=== PATIENT | female | born 1955 | race Caucasian/White ===

== ENCOUNTER 2017-08-14 06:34 | Day surgery (SDC) | payer BC ==
[~2017-08-14 06:34] MED LIST: Lactated Ringers 1,000 ML IV SCH
[2017-08-14] MEDS ORDERED: Propofol 200 MG/20 ML SDV ONE ×2 (07:59→08:09)
[2017-08-14] MEDS ORDERED: fentaNYL 100 MCG/2 ML SDV ONE (07:59)
[2017-08-14] MEDS ORDERED: Ondansetron 4 MG/2 ML SDV ONE (08:00)
[2017-08-14 09:05] VITALS: BP 107/62
--- NOTE | 2017-08-14 10:17 | OR ---
PREOPERATIVE DIAGNOSIS: Screening colonoscopy. POSTOPERATIVE DIAGNOSIS: Normal colonoscopic exam. PROCEDURE PROPOSED AND PROCEDURE DONE: Total flexible colonoscopy. INDICATION: This is a 62-year-old female who comes in for a 10-year screening colonoscopy. She denies any symptomatology and has a negative family history for colon cancer. TECHNIQUE: The patient was brought to the endoscopy suite and placed in a left lateral decubitus position. She was given MAC anesthesia with propofol per SCRAP DROP CRANE OPERATOR. She was in the left lateral decubitus position, and a flexible video colonoscope was then passed transanally and under visualization, advanced to the cecum without difficulty. Examination revealed normal ascending, transverse, descending, sigmoid, and rectal colons. There was no evidence of any polyps, colitis, diverticulosis, or any other worrisome findings. The scope was then withdrawn. The patient tolerated the procedure well. FINAL IMPRESSION: Normal colonoscopic exam. PLAN: The patient was reassured. I felt she could wait 10 years before she needs a repeat colonoscopy. SCM: 08/14/2017 08:27:19 MODL: 08/14/2017 09:29:25 /[id number]
== END 2017-08-14 09:40 | disposition home or self-care (01) ==
LOC: VM.SDS 06:34
PROVIDERS: ATTEND Surgery
DX: Z12.11 Encounter for screening for malignant neoplasm of colon (principal); Z88.0 Allergy status to penicillin
CPT/HCPCS: 45378; J2405; J2704; J7120; J3010

== ENCOUNTER 2018-03-15 10:27 | Observation (INO) | payer BC ==
[2018-03-15] MEDS ORDERED: Temazepam 15 MG Cap PO PRN (11:02)
[2018-03-15] MEDS ORDERED: Ketorolac 30 MG/ML SDV IVPUSH PRN ×2 (11:02→17:05)
[2018-03-15] MEDS ORDERED: Ibuprofen 200 MG Tab PO PRN (11:02)
[2018-03-15] MEDS ORDERED: HYDROmorphone 1 MG/ML Syringe IVPUSH PRN (11:02)
--- NOTE | 2018-03-15 11:15 | PCM.HP ---
"H&P History of Present Illness - General Date of Service: 03/15/18 Admit Problem/Dx: Admission Diagnosis/Problem Admission Diagnosis/Problem Dehydration Source of Information: Patient - History of Present Illness Initial Comments - Free Text/Narative: Assessment / Plan 1. Fever of unknown origin (FUO) - COMPLETE BLOOD COUNT WITH DIFFERENTIAL; Future - HIV SCREEN REFLEX TO CONFIRMATION; Future - LDH TOTAL; Future - C-REACTIVE PROTEIN (INFLAMMATION); Future - ESR; Future - CULTURE, BLOOD; Future - COMPREHENSIVE METABOLIC PANEL; Future - ANTI NUCLEAR ANTIBODY SCREEN WITH REFLEX; Future - RHEUMATOID FACTOR, QUANTITATIVE; Future - QUANTIFERON; Future - CK; Future - LYME DISEASE ANTIBODY REFLEX TO CONFIRMATION; Future - PROTEIN SERUM ELECTROPHORESIS, REFLEX TO IMMUNOFIX; Future - AMYLASE; Future - URINE DIP, REFLEX TO MICROSCOPIC, REFLEX TO CULTURE; Future - MONOTEST; Future - CMV IGG AND IGM EIA; Future qSOFA (Quick SOFA) Score for Sepsis from [facility] on 03/15/2018 RESULT SUMMARY: 0 points qSOFA Score Not High Risk If sepsis is still suspected, continue to monitor, evaluate, and initiate treatment as appropriate, including serial qSOFA assessments. INPUTS: Altered mental status > 0 = No Respiratory rate =22 > 0 = No Systolic BP =100 > 0 = No Plan:Fever without source 10 days. She is getting a bit weak and rundown otherwise she has a nontoxic exam. Her labs with normal CRP with repeat one pending and just mild elevation of ESR look like more of a viral process. Additionally she has some reactive lymphocytes. Her Monospot testis negative. We'll send for CMV. West Nile would be in differential her test was negative but this can take a while turn positive. Consider repeating this next week. I don't think influenza would be likely given no recent exposures and complete absence of respiratory symptoms. Describes zoster but this was 2mo ago, likely noncontributory. Only travel was to [place]. Test for Lyme but denies any bites and not common in [place]. I don't feel lumbar puncture is indicated this time given complete absence of head and neck symptoms. I do not feel CT chest and abdomen are indicated at this time given nontoxic picture as well. I have sent out other above FUO labs to [facility]. They would like admission for symptom control and IV fluids as she is feeling quite run down. We'll discuss with internal medicine Dr. Patel will be covering over the weekend. I otherwise do not see need for transfer or infectious disease consult at this time as long she remains nontoxic. Follow Up: No disposition on file. HPI / History / ROS HPI Comments:Recheck fever without a source now for about 10 days. Temps 101- 102. Not trending downward. Some relief with Tylenol and Advil. Feels weak all over. Denies headache or neck pain. Denies respiratory symptoms denies GI or symptoms. Normal CRP just mild elevation ESR. UA was normal. No known exposures. No real recent travel have been to [place]. She had a small zoster type rash to her left scapula but this was a full two months ago. Nonsmoker, , otherwise healthy. Fever Associated symptoms include nauseaand a rash (resolved). Pertinent negatives include no abdominal pain, congestion, coughing, diarrhea, headaches, sore throator vomiting. Extremity Weakness Associated symptoms include arthralgias, chills, fatigue, a fever, nausea, a rash (resolved)and weakness. Pertinent negatives include no abdominal pain, congestion, coughing, headaches, joint swelling, myalgias, neck pain, numbness, sore throator vomiting. Nausea Associated symptoms include arthralgias, chills, fatigue, a fever, nausea, a rash (resolved)and weakness. Pertinent negatives include no abdominal pain, congestion, coughing, headaches, joint swelling, myalgias, neck pain, numbness, sore throator vomiting. Medications MedicationsPriortoVisit Outpatient Medications Prior to Visit Medication Sig Dispense Refill omega-3 fatty acids (FISH OIL) 1000 mg capsule Take 1,000 mg by mouth 3 times a day magnesium 100 MG TABS Take 250 mg by mouth Saccharomyces boulardii (PROBIOTIC) 250 MG CAPS Take 250 mg by mouth Multiple Vitamin (MULTIVITAMIN) TABS Take 1 tablet by mouth 1 time per day. calcium carbonate-vitamin D (CALTRATE 600 + VIT D) 600mg-200 unit tablet Take 1 tablet by mouth 2 times a day with meals. ibuprofen (ADVIL;MOTRIN-IB) 200 mg tablet Take 200-600 mg by mouth Every 4 hours as needed. No facility-administered medications prior to visit. Allergies Allergies l Allergen l Reactions Penicillin Edema Facial and hand swelling Problem List Patient Active Problem List l Diagnosis Menopausal and postmenopausal disorder Viral warts Colon polyp Hyperlipidemia, unspecified High risk medication use Watts fracture Scalp cyst Abnormal pap Palpitations Anxiety Prominent aorta Hearing disorder of both ears Torticollis, spasmodic Knee pain, bilateral Myofascial pain syndrome IUD contraception Herpes zoster virus infection of face and ear nerves Pelvic pain in female Primary insomnia Normal cardiac stress test Panic disorder without agoraphobia Disorder of bone Medical/Surgical/Family/SocialHistory PastMedicalHistory Past Medical History: Diagnosis Date Anxiety 09/23/2013 prn, xanax, . Recurred Feb 2015, AIXA&was 4, and PHQ 6., trial xanax again. Colon polyp 03/06/2007 03/06/2007 hyperplastic polyps, next scope 10 yrs Disorder of bone 07/12/2015 Osteopenia in 2009, 2012 worsened, 07/15/15 worsened, next DEXA in 2 yrs. Fibroid uterus 10/06/[address], having pain. H/O colonoscopy 03/06/2007 see colon polyp Hearing disorder of both ears Herpes zoster virus infection of face and ear nerves 2010 right forehead. Hyperlipidemia, unspecified Iron deficiency anemia secondary to inadequate dietary iron intake 09/12/2013 Denied blood donation.in Dec , low iron stores in Aug 2013. IUD contraception [id number], replaced in 2002 don't know if removed? Watts fracture 12/25/2012 12/25/12 injury on left. Myofascial pain syndrome 04/06/2014 seen by Milan Wallace. OT. Normal cardiac stress test 05/03/20152014 nl stress echo, EF 75%. Pelvic pain in female 10/06/[address], having pain. Prominent aorta 10/02/2013 Neg US in 2006 PastSurgicalHistory Past Surgical History: Procedure Laterality Date OPEN REDUCTION Left 01/10/2013 Procedure: LEFT FOOT PERCUTANEOUS SCREW FIXATION ; LEFT FOOT PERCUTANEOUS SCREW FIXATION ; Surgeon: Kennedy Tanner DPM FamilyHistory Family History Problem Relation Age of Onset Stroke Mother 59 Chronic Obstructive Pulmonary Disease Father Alcohol Abuse Father Emphysema Sister Heart Paternal Grandfather Heart Brother Alcohol Abuse Brother Emphysema Brother Lung Cancer Brother Cancer (not otherwise listed) Maternal Grandmother bladder cancer No Known Problems Brother Breast Cancer Paternal Aunt Colorectal Cancer Neg Hx SocialHistory Social History Social History Marital status: Number of children: 3 Occupational History retired Social History Main Topics Smoking status: Never Smoker Smokeless tobacco: Never Used Alcohol use No Comment: 1-2 glasses wine twice a week Drug use: No Social History Narrative She is . She retired as middle school counselor in 2011. Does not smoke. Rarely consumes alcohol. She is [employer]regational. Exercise: Walks 2-3 miles on treadmill daily Diet: Well balanced; no milk; takes a calcium supplement Safety: Denies any physical, emotional, or sexual abuse; guns in home locked up ; 100% seatbelt; rare with sunscreen; does not ride bike or motorcycle ROS Review of Systems Constitutional: Positive for chills, fatigueand fever. HENT: Negative for congestionand sore throat. Respiratory: Negative for coughand shortness of breath. Gastrointestinal: Positive for nausea. Negative for abdominal pain, diarrhea and vomiting. Musculoskeletal: Positive for arthralgias. Negative for joint swelling, myalgias , neck painand neck stiffness. Skin: Positive for rash(resolved). Neurological: Positive for weakness. Negative for numbnessand headaches. Physical / Results BP 104/76 Pulse 85 Temp 101.5 F (38.6 C) (Temporal) Wt 69.8 kg (153 lb 12.8 oz) SpO2 97% BMI 27.46 kg/m2|| Physical Exam Constitutional: She is oriented to person, place, and time. She appears well- developedand well-nourished. No distress. HENT: Right Ear: External earnormal. Left Ear: External earnormal. Nose: Nose normal. Mouth/Throat: Oropharynx is clear and moist. Eyes: Pupils are equal, round, and reactive to light. Neck: Normal range of motion. Cardiovascular: Normal rate, regular rhythmand normal heart sounds. Pulmonary/Chest: Effort normaland breath sounds normal. Abdominal: Soft. There is no tenderness. Musculoskeletal: Normal range of motion. Neurological: She is alertand oriented to person, place, and time. Skin: Skin is warmand dry. She is not diaphoretic. Healed hyperpigmentation zoster type scar L scapula Psychiatric: She has a normal mood and affect. Generalized Pain Score (Numeric/FACES): 7 - Related Data Allergies/Adverse Reactions: Allergies Allergy/AdvReac Type Severity Reaction Status Date / Time Penicillins Allergy Swelling Verified 08/14/17 06:57 Home Medications: Home Meds Ca/D3/Mag#11/Zinc/Night Patrol Inspector/Kike/Bor [Caltrate 600+D Plus Tablet] 1 tab PO BID [History] Fish Oil/[place]-3 Fatty Acids [Fish Oil 1,000 MG] 1,000 mg PO BID 08/08/17 [ History] Ibuprofen [Advil] 200 - 600 mg PO Q4H PRN 08/08/17 [History] Magnesium 250 mg PO DAILY 08/08/17 [History] Multivitamin [Multivitamins] 1 tab PO DAILY 08/08/17 [History] Saccharomyces Boulardii [Probiotic] 250 mg PO DAILY 08/08/17 [History] Past Medical History HEENT History: Reports: Hard of Hearing Other HEENT History: Has hearing aids. Cardiovascular History: Reports: High Cholesterol Other Cardiovascular History: Palpitations. prominent aorta Respiratory History: Reports: None Gastrointestinal History: Reports: Colon Polyp Genitourinary History: Reports: None FINANCIAL OPERATIONS ANALYST History: Reports: Fibroids Musculoskeletal History: Reports: Other (See Below) Other Musculoskeletal History: myofascial pain syndrome Neurological History: Reports: Other (See Below) Other Neuro History: herpes zoster Psychiatric History: Reports: Anxiety Endocrine/Metabolic History: Reports: Osteopenia Hematologic History: Reports: Anemia, Iron Deficiency Immunologic History: Reports: None Oncologic (Cancer) History: Reports: None Dermatologic History: Reports: None - Past Surgical History Head Surgeries/Procedures: Reports: None HEENT Surgical History: Reports: None Cardiovascular Surgical History: Reports: None GI Surgical History: Reports: Colonoscopy Musculoskeletal Surgical History: Reports: ORIF Oncologic Surgical History: Reports: None H&P Review of Systems - Review of Systems: Review Of Systems: See Below Exam - Exam Exam: See Below Problem List Initiated/Reviewed/Updated: Yes Orders Last 24hrs: Active Orders 24 hr Category Date Time Status Admission Status [Patient Status] [ADT] Routine ADT 03/15/18 10:33 Active Patient Status [ADT] Routine ADT 03/15/18 11:02 Ordered Ambulate [RC] PER UNIT ROUTINE Care 03/15/18 11:03 Ordered Oxygen Therapy [RC] PRN Care 03/15/18 11:02 Ordered Up With Assistance [RC] ASDIRECTED Care 03/15/18 11:02 Ordered VTE/DVT Education [RC] PER UNIT ROUTINE Care 03/15/18 11:02 Ordered Vital Signs [RC] Q4H Care 03/15/18 11:02 Ordered Regular Diet [DIET] Diet 03/15/18 Lunch Ordered C-REACTIVE PROTEIN [CHEM] AM Lab 03/16/18 05:11 Ordered CBC WITH AUTO DIFF [HEME] AM Lab 03/16/18 05:11 Ordered COMPREHENSIVE METABOLIC PN,CMP [CHEM] AM Lab 03/16/18 05:11 Ordered CULTURE MRSA CLEARANCE [RM] Routine Lab 03/15/18 10:39 Ordered Acetaminophen [Tylenol] Med 03/15/18 11:02 Ordered 650 mg PO Q4H PRN HYDROmorphone [Dilaudid] Med 03/15/18 11:02 Ordered 0.25 mg IVPUSH Q2H PRN Ibuprofen [Motrin] Med 03/15/18 11:02 Ordered 200 mg PO Q6H PRN Ketorolac [Toradol] Med 03/15/18 11:02 Ordered 30 mg IVPUSH Q6H PRN Lactated Ringers @ 125 MLS/HR(1000ml) Med 03/15/18 11:15 Ordered Lactated Ringers [Ringers, Lactated] 1,000 ml IV ASDIRECTED Ondansetron [Zofran] Med 03/15/18 11:02 Ordered 4 mg IV Q6H PRN Temazepam [Restoril] Med 03/15/18 11:02 Ordered 15 mg PO BEDTIME PRN Resuscitation Status Routine Resus Stat 03/15/18 11:02 Ordered Medication Orders Acetaminophen (Tylenol) 650 mg PO Q4H PRN PRN Reason: Pain (Mild 1-3)/fever Hydromorphone HCl (Dilaudid) 0.25 mg IVPUSH Q2H PRN PRN Reason: Pain (severe 7-10) Lactated Ringer's (Ringers, Lactated) 1,000 mls @ 125 mls/hr IV ASDIRECTED NADJA Ibuprofen (Motrin) 200 mg PO Q6H PRN PRN Reason: Pain (mild 1-3) Ketorolac Tromethamine (Toradol) 30 mg IVPUSH Q6H PRN PRN Reason: Pain (moderate 4-6) Ondansetron HCl (Zofran) 4 mg IV Q6H PRN PRN Reason: Nausea/Vomiting Temazepam (Restoril) 15 mg PO BEDTIME PRN PRN Reason: Sleep"
[2018-03-15] MEDS: Lactated Ringers 1,000 ML IV SCH ×2 (11:45→20:16)
[2018-03-15] MEDS ORDERED: Ketorolac 30 MG/ML SDV IVPUSH ONE (18:02)
[2018-03-15] MEDS: Ondansetron 4 MG/2 ML SDV IV PRN (20:01)
[2018-03-15] MEDS: Acetaminophen 325 MG Tab PO PRN (20:03)
[2018-03-16] MEDS: Ondansetron 4 MG/2 ML SDV IV PRN (02:16)
[2018-03-16] MEDS: Lactated Ringers 1,000 ML IV SCH (04:48)
[2018-03-16] MEDS: Acetaminophen 325 MG Tab PO PRN (04:51)
[2018-03-16 07:52] LABS: CHLORIDE,CL 103 mmol/L (98-107); SODIUM,NA 136 mmol/L (136-145)
[2018-03-16 08:06] LABS: ANION GAP 10.5 mmol/L (10-20)
--- NOTE | 2018-03-16 10:34 | PCM.PN ---
- General Info Date of Service: 03/16/18 Admission Dx/Problem (Free Text): Admission Diagnosis/Problem Admission Diagnosis/Problem Dehydration Subjective Update: C/o body aches, is sleepy this AM because of fever and vomiting times one this am On hx there was a question of retained IUD- Pt states this was removed years ago - Review of Systems General: Reports: Weakness HEENT: Reports: Other (chronic neck pain which is stable) Pulmonary: Reports: No Symptoms Cardiovascular: Reports: No Symptoms Gastrointestinal: Reports: Other (vomited once this am but no abd pain) Genitourinary: Reports: No Symptoms Musculoskeletal: Reports: Other (overall body aches) Skin: Reports: No Symptoms Neurological: Reports: No Symptoms Psychiatric: Reports: No Symptoms - Patient Data Vitals - Most Recent: Last Vital Signs Temp 102.9 F H 03/16/18 05:44 Pulse 73 03/16/18 05:44 Resp 20 03/16/18 05:44 BP 118/70 03/16/18 05:44 Pulse Ox 99 03/16/18 05:44 Weight - Most Recent: 154 lb I&O - Last 24 Hours: Intake & Output 03/15/18 03/16/18 03/16/18 22:59 06:59 14:59 Intake Total 1650 1761 120 Output Total 750 400 Balance 900 1761 -280 Lab Results Last 24 Hours: Laboratory Results - last 24 hr 03/16/18 03/16/18 Range/Units 07:09 07:09 WBC 16.1 H (4.0-10.0) x10^3/uL RBC 3.44 L (4.00-5.50) x10^6/uL Hgb 11.2 L D (12.0-16.0) g/dL Hct 32.5 L (33.0-47.0) % MCV 94.5 H D (78.0-93.0) fL MCH 32.6 H (26.0-32.0) pg MCHC 34.5 (32.0-36.0) g/dL RDW Coeff of Vu 12.4 (10.0-15.0) % Plt Count 158 D (130-400) x10^3/uL Add Manual Diff Yes Neutrophils % (Manual) 88 H (50-80) % Band Neutrophils % 1 (0-6) % Lymphocytes % (Manual) 7 L (25-50) % Monocytes % (Manual) 4 (2-11) % Platelet Estimate Adequate Anisocytosis 1+ slight H ESR 37 H (0-21) mm/hr Sodium 136 (136-145) mmol/L Potassium 3.5 (3.5-5.1) mmol/L Chloride 103 (98-107) mmol/L Carbon Dioxide 26 (21-32) mmol/L Anion Gap 10.5 (10-20) mmol/L BUN 17 (7-18) mg/dL Creatinine 0.7 (0.55-1.02) mg/dL Est Cr Clr Drug Dosing 65.90 mL/min Estimated GFR (MDRD) > 60 Glucose 105 (74-106) mg/dL Calcium 8.1 L (8.5-10.1) mg/dL Corrected Calcium 9.14 (8.5-10.1) mg/dL Total Bilirubin 0.7 (0.2-1.0) mg/dL AST 30 (15-37) U/L ALT 60 H (14-59) U/L Alkaline Phosphatase 68 (46-116) U/L C-Reactive Protein 2.0 H (<=0.9) mg/dL Total Protein 6.2 L (6.4-8.2) g/dL Albumin 2.7 L (3.4-5.0) g/dL Globulin 3.5 Albumin/Globulin Ratio 0.77 Med Orders - Current: Current Medications Acetaminophen (Tylenol) 650 mg PO Q4H PRN PRN Reason: Pain (Mild 1-3)/fever Last Admin: 03/16/18 04:51 Dose: 650 mg Hydromorphone HCl (Dilaudid) 0.25 mg IVPUSH Q2H PRN PRN Reason: Pain (severe 7-10) Lactated Ringer's (Ringers, Lactated) 1,000 mls @ 125 mls/hr IV ASDIRECTED [facility] Last Admin: 03/16/18 04:48 Dose: 125 mls/hr Ibuprofen (Motrin) 200 mg PO Q6H PRN PRN Reason: Pain (mild 1-3) Last Admin: 03/15/18 11:50 Dose: 200 mg Ketorolac Tromethamine (Toradol) 15 mg IVPUSH Q6H PRN PRN Reason: Pain (moderate 4-6) Stop: 03/17/18 23:59 Last Admin: 03/15/18 20:01 Dose: 15 mg Ondansetron HCl (Zofran) 4 mg IV Q6H PRN PRN Reason: Nausea/Vomiting Last Admin: 03/16/18 02:16 Dose: 4 mg Temazepam (Restoril) 15 mg PO BEDTIME PRN PRN Reason: Sleep Discontinued Medications Ketorolac Tromethamine (Toradol) 30 mg IVPUSH Q6H PRN PRN Reason: Pain (moderate 4-6) Ketorolac Tromethamine (Toradol) 30 mg IVPUSH ONETIME ONE Stop: 03/15/18 18:03 Last Admin: 03/15/18 18:28 Dose: Not Given - Exam General: Other (sleepy but arouses easily to voice and is cooperative and alert. Nurse and family concur that mental status is unchanged from yesterday.) HEENT: Pupils Equal Neck: Trachea Midline, Other (neck mildly tender topalpation and she moves it slowly but pt states this is baseline) Lungs: Clear to Auscultation Cardiovascular: Regular Rate GI/Abdominal Exam: Normal Bowel Sounds, Soft, Non-Tender (possible enlarged liver) Back Exam: Normal Inspection Extremities: Normal Inspection Skin: Other (patch of old zoster left shoulder, multiple needle pucnture wonds w /o inflammation on arms and wrists) Neurological: No New Focal Deficit - Problem List & Annotations (1) Fever SNOMED Code(s): 984519741 Code(s): R50.9 - FEVER, UNSPECIFIED Status: Acute Current Visit: Yes Qualifiers: Fever type: due to other condition Qualified Code(s): R50.81 - Fever presenting with conditions classified elsewhere Annotation/Comment:: Labs reviewed WBC has gone from 3800 to 11,000 to 16,000 today with left shift, also slowly droppiing HCT. there are no localizing signs. With elevated SGOt and vomiting , will do Abd Cat today , if negative. Pt's family and I have discussed trasnfer to [place] for ID consult. Pt has had neg serum IGG for West Nile 03/13, neg HIV, Neg mono spot, Nl SPEP and RF to date. Susect this may be West Nile. Will watch Neuro status carefully today. - Problem List Review Problem List Initiated/Reviewed/Updated: Yes - My Orders Last 24 Hours: My Active Orders 03/16/18 06:01 Blood Culture x2 Reflex Set [OM.PC] Stat 03/16/18 07:09 CULTURE BLOOD [BC] Stat 03/16/18 07:16 CULTURE BLOOD [BC] Stat 03/16/18 09:11 CTA Abd Pelv w wo Cont [CT] Urgent
[2018-03-16 11:04] VITALS: BP 110/64
--- NOTE | 2018-03-16 11:17 | PCM.DCSUM1 ---
Discharge Summary - Hospital Course Diagnosis: Stroke: No - Discharge Data Discharge Date: 03/16/18 Discharge Disposition: DC/Tfer to Acute Hospital 02 Condition: Stable - Discharge Diagnosis/Problem(s) (1) Fever SNOMED Code(s): 366151683 ICD Code: R50.9 - FEVER, UNSPECIFIED Status: Acute Current Visit: Yes Problem Details: Labs reviewed WBC has gone from 3800 to 11,000 to 16,000 today with left shift, also slowly droppiing HCT. there are no localizing signs. With elevated SGOt and vomiting , will do Abd Cat today , if negative. Pt's family and I have discussed trasnfer to [facility] for ID consult. Pt has had neg serum IGG for West Nile 03/13, neg HIV, Neg mono spot, Nl SPEP and RF to date. Susect this may be [place]. Will watch Neuro status carefully today. Qualifiers: Fever type: due to other condition Qualified Code(s): R50.81 - Fever presenting with conditions classified elsewhere - Discharge Plan *PRESCRIPTION DRUG MONITORING PROGRAM REVIEWED*: Not Applicable *COPY OF PRESCRIPTION DRUG MONITORING REPORT IN PATIENT DK: Not Applicable Home Medications: Home Meds Ca/D3/Mag#11/Zinc/Bone Char Puller/Kike/Bor [Caltrate 600+D Plus Tablet] 1 tab PO BID [History] Fish Oil/[place]-3 Fatty Acids [Fish Oil 1,000 MG] 1,000 mg PO BID 08/08/17 [ History] Ibuprofen [Advil] 200 - 600 mg PO Q4H PRN 08/08/17 [History] Magnesium 250 mg PO DAILY 08/08/17 [History] Multivitamin [Multivitamins] 1 tab PO DAILY 08/08/17 [History] Saccharomyces Boulardii [Probiotic] 250 mg PO DAILY 08/08/17 [History] - Discharge Summary/Plan Comment Discharge Summary/Plan Comment: Pt was admitted to observation for fever of 10 days duration, dehydration. she continued to spike to 102 and then also had a vomiting episode. Pt had w/up in clinic which included reportedly negative cxr, Us, blood culture are pending; AST mildly elevated. West Nile IGM and Monospot, RF, SPEP were negative. Repeated ROS and examination were unrevealing for possible infection locus. The patient was very sleepy but arousable and appropriate on Sat, Mar 16 and while her mental status was unchanged from 24 hours previous, Her stated that the pt had chronic insomnia and was always active and so the sleepines which started about 3 days ago was a significant change in mental status. At time of discharge,VSS were temp 101.6, 110/74, 76 99% Pt was sleepy but arousable, IN NAD LABS:03/16/2018 WBC 16,000 with 88% polys 1BWas 3800 3 days ago and 11,000 1 day ago) h/h 11.2/325.5 platelets 158,000 MEDICAL ACCOUNTING CLERK nl except for alt 60 CRP 6.0 Pt receivedno medications other than tylenol for fever she has an IV IMP: Fever of unkown origian whichis not relenting, WBC is up and pt is quite drowsy which may be a mental status change PlanPt referred to [facility] for evluatio which may include abd imaging and LP, ID consult Pt and family would like transfer Dr WASSERMAN Accepts. Pt will go by ground ambulance - Patient Data Vitals - Most Recent: Last Vital Signs Temp 101.6 F H 03/16/18 10:00 Pulse 76 03/16/18 10:00 Resp 20 03/16/18 05:44 BP 110/64 03/16/18 10:00 Pulse Ox 99 03/16/18 10:00 Weight - Most Recent: 154 lb I&O - Last 24 hours: Intake & Output 03/15/18 03/16/18 03/16/18 22:59 06:59 14:59 Intake Total 1650 1761 120 Output Total 750 400 Balance 900 1761 -280 Lab Results - Last 24 hrs: Laboratory Results - last 24 hr 03/16/18 03/16/18 Range/Units 07:09 07:09 WBC 16.1 H (4.0-10.0) x10^3/uL RBC 3.44 L (4.00-5.50) x10^6/uL Hgb 11.2 L D (12.0-16.0) g/dL Hct 32.5 L (33.0-47.0) % MCV 94.5 H D (78.0-93.0) fL MCH 32.6 H (26.0-32.0) pg MCHC 34.5 (32.0-36.0) g/dL RDW Coeff of Uv 12.4 (10.0-15.0) % Plt Count 158 D (130-400) x10^3/uL Add Manual Diff Yes Neutrophils % (Manual) 88 H (50-80) % Band Neutrophils % 1 (0-6) % Lymphocytes % (Manual) 7 L (25-50) % Monocytes % (Manual) 4 (2-11) % Platelet Estimate Adequate Anisocytosis 1+ slight H ESR 37 H (0-21) mm/hr Sodium 136 (136-145) mmol/L Potassium 3.5 (3.5-5.1) mmol/L Chloride 103 (98-107) mmol/L Carbon Dioxide 26 (21-32) mmol/L Anion Gap 10.5 (10-20) mmol/L BUN 17 (7-18) mg/dL Creatinine 0.7 (0.55-1.02) mg/dL Est Cr Clr Drug Dosing 65.90 mL/min Estimated GFR (MDRD) > 60 Glucose 105 (74-106) mg/dL Calcium 8.1 L (8.5-10.1) mg/dL Corrected Calcium 9.14 (8.5-10.1) mg/dL Total Bilirubin 0.7 (0.2-1.0) mg/dL AST 30 (15-37) U/L ALT 60 H (14-59) U/L Alkaline Phosphatase 68 (46-116) U/L C-Reactive Protein 2.0 H (<=0.9) mg/dL Total Protein 6.2 L (6.4-8.2) g/dL Albumin 2.7 L (3.4-5.0) g/dL Globulin 3.5 Albumin/Globulin Ratio 0.77 Med Orders - Current: Current Medications Acetaminophen (Tylenol) 650 mg PO Q4H PRN PRN Reason: Pain (Mild 1-3)/fever Last Admin: 03/16/18 04:51 Dose: 650 mg Hydromorphone HCl (Dilaudid) 0.25 mg IVPUSH Q2H PRN PRN Reason: Pain (severe 7-10) Lactated Ringer's (Ringers, Lactated) 1,000 mls @ 125 mls/hr IV ASDIRECTED NADJA Last Admin: 03/16/18 04:48 Dose: 125 mls/hr Ibuprofen (Motrin) 200 mg PO Q6H PRN PRN Reason: Pain (mild 1-3) Last Admin: 03/15/18 11:50 Dose: 200 mg Ketorolac Tromethamine (Toradol) 15 mg IVPUSH Q6H PRN PRN Reason: Pain (moderate 4-6) Stop: 03/17/18 23:59 Last Admin: 03/15/18 20:01 Dose: 15 mg Ondansetron HCl (Zofran) 4 mg IV Q6H PRN PRN Reason: Nausea/Vomiting Last Admin: 03/16/18 02:16 Dose: 4 mg Temazepam (Restoril) 15 mg PO BEDTIME PRN PRN Reason: Sleep Discontinued Medications Ketorolac Tromethamine (Toradol) 30 mg IVPUSH Q6H PRN PRN Reason: Pain (moderate 4-6) Ketorolac Tromethamine (Toradol) 30 mg IVPUSH ONETIME ONE Stop: 03/15/18 18:03 Last Admin: 03/15/18 18:28 Dose: Not Given
== END 2018-03-16 12:41 | disposition short-term general hospital (02) ==
LOC: VM.MS 10:33
PROVIDERS: ADMIT Family Medicine; ATTEND Internal Medicine
DX: R50.81 Fever presenting with conditions classified elsewhere (principal); E86.0 Dehydration; R53.1 Weakness; R11.2 Nausea with vomiting, unspecified; E78.5 Hyperlipidemia, unspecified; F41.9 Anxiety disorder, unspecified; D50.8 Other iron deficiency anemias; Z79.899 Other long term (current) drug therapy; Z88.0 Allergy status to penicillin
CPT/HCPCS: 36415; 80053; 85025; 85652; 86140; 87040; 96361; 96374; 96375; 96376; A9270-GY; G0378; G0379; J1885; J2405; J7120

== ENCOUNTER 2018-11-09 09:56 | Emergency (ER) | payer BC ==
[2018-11-09 12:02] VITALS: BP 135/77
[2018-11-09] MEDS ORDERED: Ketorolac 30 MG/ML SDV IM ONE (12:18)
[2018-11-09] MEDS ORDERED: Clindamycin HCl 150 MG Cap PO ONE (12:19)
--- NOTE | 2018-11-09 12:40 | EDM.PDOC ---
ED HPI GENERAL MEDICAL PROBLEM - General Chief Complaint: ENT Problem Stated Complaint: TOOTH ACHE Time Seen by Provider: 11/09/18 11:49 Source of Information: Reports: Patient History Limitations: Reports: No Limitations - History of Present Illness INITIAL COMMENTS - FREE TEXT/NARRATIVE: Patient reports that on Sunday she ate some knott and felt her upper left rear molar have pain. This has worsened over the last couple days. Was unable to get into the dentist on Sunday. She feels like it is swollen. Denies any fever or chills. No other complaints with regards to ears, neck, chest, redness , heat, or swelling to neck. I do not appreciate any facial swelling. Onset: Gradual Duration: Getting Worse Severity: Mild Improves with: Reports: None Worsens with: Reports: Eating Associated Symptoms: Reports: No Other Symptoms Left Upper Tooth/Teeth Pain Score (Numeric/FACES): 5 - Related Data Allergies Allergy/AdvReac Type Severity Reaction Status Date / Time Penicillins Allergy Unknown Edema Verified 11/09/18 11:56 Home Meds: Home Meds Ca/D3/Mag#11/Zinc/[place] Patcher Helper/Kike/Bor [Caltrate 600+D Plus Tablet] 1 tab PO BID [History] Fish Oil/[place]-3 Fatty Acids [Fish Oil 1,000 MG] 1,000 mg PO BID 08/08/17 [ History] Ibuprofen [Advil] 200 - 600 mg PO Q4H PRN 08/08/17 [History] Magnesium 250 mg PO DAILY 08/08/17 [History] Multivitamin [Multivitamins] 1 tab PO DAILY 08/08/17 [History] Saccharomyces Boulardii [Probiotic] 250 mg PO DAILY 08/08/17 [History] Past Medical History HEENT History: Reports: Hard of Hearing Other HEENT History: Has hearing aids. Cardiovascular History: Reports: High Cholesterol Other Cardiovascular History: Palpitations. prominent aorta Respiratory History: Reports: None Gastrointestinal History: Reports: Colon Polyp Genitourinary History: Reports: None PSYCH NURSE History: Reports: Fibroids Other PSYCH NURSE History: menopausal and postmenopausal Musculoskeletal History: Reports: Other (See Below) Other Musculoskeletal History: myofascial pain syndrome Neurological History: Reports: Other (See Below) Other Neuro History: herpes zoster Psychiatric History: Reports: Anxiety Other Psychiatric History: primary insomnia Endocrine/Metabolic History: Reports: Osteopenia Hematologic History: Reports: Anemia, Iron Deficiency Immunologic History: Reports: None Oncologic (Cancer) History: Reports: None Dermatologic History: Reports: None Other Dermatologic History: scalp cyst, viral warts - Past Surgical History Head Surgeries/Procedures: Reports: None HEENT Surgical History: Reports: None Cardiovascular Surgical History: Reports: None GI Surgical History: Reports: Colonoscopy Musculoskeletal Surgical History: Reports: ORIF, Other (See Below) Other Musculoskeletal Surgeries/Procedures:: broken foot Oncologic Surgical History: Reports: None Social & Family History - Tobacco Use Smoking Status *Q: Never Smoker - Caffeine Use Caffeine Use: Reports: Coffee - Recreational Drug Use Recreational Drug Use: No ED ROS ENT - Review of Systems Review Of Systems: See Below Constitutional: Reports: No Symptoms HEENT: Reports: Dental Pain Respiratory: Reports: No Symptoms Cardiovascular: Reports: No Symptoms Endocrine: Reports: No Symptoms GI/Abdominal: Reports: No Symptoms : Reports: No Symptoms Musculoskeletal: Reports: No Symptoms Skin: Reports: No Symptoms Neurological: Reports: No Symptoms Psychiatric: Reports: No Symptoms Hematologic/Lymphatic: Reports: No Symptoms Immunologic: Reports: No Symptoms ED EXAM, ENT - Physical Exam Exam: See Below Exam Limited By: No Limitations General Appearance: Alert, WD/WN, No Apparent Distress Eye Exam: Bilateral Eye: EOMI, Normal Inspection, PERRL Ears: Normal TMs Nose: Normal Inspection, Normal Mucousa, No Blood Mouth/Throat: Normal Inspection, Normal Gums, Normal Lips, Normal Oropharynx, Normal Teeth Head: Atraumatic, Normocephalic Neck: Normal Inspection, Supple, Non-Tender, Full Range of Motion Respiratory/Chest: No Respiratory Distress, Lungs Clear, Normal Breath Sounds, No Accessory Muscle Use, Chest Non-Tender Cardiovascular: Normal Peripheral Pulses, Regular Rate, Rhythm, No Edema, No Gallop, No JVD, No Murmur, No Rub GI/Abdominal: Normal Bowel Sounds, Soft, Non-Tender, No Organomegaly, No Distention, No Abnormal Bruit, No Mass Extremities: Normal Inspection, Normal Range of Motion, Non-Tender, No Pedal Edema, Normal Capillary Refill Neurological: Alert, Oriented, CN II-XII Intact, Normal Cognition, Normal Gait, Normal Reflexes, No Motor/Sensory Deficits Psychiatric: Normal Affect, Normal Mood Skin: Warm, Dry, Intact, Normal Color, No Rash Lymphatic: No Adenopathy Course - Vital Signs Last Recorded V/S: Last Vital Signs Temp 37.2 C 11/09/18 11:50 Pulse 80 11/09/18 11:50 Resp 16 11/09/18 11:50 BP 135/77 11/09/18 11:50 Pulse Ox 98 11/09/18 11:50 - Orders/Labs/Meds Meds: Medications Discontinued Medications Generic Name Dose Route Start Last Admin Trade Name Terra PRN Reason Stop Dose Admin Clindamycin HCl 450 mg 11/09/18 12:19 Cleocin PO 11/09/18 12:20 ONETIME ONE Ketorolac Tromethamine 30 mg 11/09/18 12:18 11/09/18 12:30 Toradol IM 11/09/18 12:19 30 mg ONETIME ONE Administration Departure - Departure Time of Disposition: 12:36 Disposition: Home, Self-Care 01 Condition: Good Clinical Impression: Dental abscess - Discharge Information *PRESCRIPTION DRUG MONITORING PROGRAM REVIEWED*: Not Applicable *COPY OF PRESCRIPTION DRUG MONITORING REPORT IN PATIENT DK: Not Applicable Instructions: Dental Abscess, [id number] Referrals: Mercy Jolly MD [Primary Care Provider] - Forms: ED Department Discharge Additional Instructions: Plan 1. Take clindamycin for the full course, even if feeling better. 2. Schedule a dental appointment for further treatment. 3. Stay well hydrated. 4. Take probiotics or eat 1-2 servings of yogurt to prevent a bacterial infection of the gut caused by taking antibiotics. 5. Follow up with Dr. Jolly as needed for additional symptom management. 6. Please call if you have any further additional questions or concerns. - Problem List & Annotations (1) Dental abscess SNOMED Code(s): 421640640 Code(s): K04.7 - PERIAPICAL ABSCESS WITHOUT SINUS Status: Acute Priority : Low - Problem List Review Problem List Initiated/Reviewed/Updated: Yes - Assessment/Plan Plan: Plan 1. Take clindamycin for the full course, even if feeling better. 2. Schedule a dental appointment for further treatment. 3. Stay well hydrated. 4. Take probiotics or eat 1-2 servings of yogurt to prevent a bacterial infection of the gut caused by taking antibiotics. 5. Follow up with Dr. Jolly as needed for additional symptom management. 6. Please call if you have any further additional questions or concerns.
== END 2018-11-09 12:36 | disposition home or self-care (01) ==
LOC: VM.ED 09:56
DX: K04.7 Periapical abscess without sinus (principal); Z88.0 Allergy status to penicillin
CPT/HCPCS: 96372; 99282; J1885

== ENCOUNTER 2023-07-05 18:06 | Emergency (ER) | payer BC, MEDICARE ==
[2023-07-05 18:17] VITALS: BP 152/75; PULSE 80
== END 2023-07-05 19:25 | disposition home or self-care (01) ==
LOC: VM.ED 18:06
DX: S93.402A Sprain of unspecified ligament of left ankle, initial encounter (principal); Z88.0 Allergy status to penicillin; X50.1XXA Overexertion from prolonged static or awkward postures, initial encounter; Y92.015 Private garage of single-family (private) house as the place of occurrence of the external cause
CPT/HCPCS: 73610-LT; 73630-LT; 99283